=== PATIENT | female | born 1990 | race Caucasian/White ===

== ENCOUNTER 2016-07-29 15:02 | Emergency (ER) | payer SELFPAY ==
[2016-07-29 15:17] VITALS: BP 183/108; PULSE 109; TEMP 97.6; BMI 32.9
--- NOTE | 2016-07-29 15:46 | EDPRACDOC ---
- General Information Chief Complaint: Rib Pain Stated Complaint: RIGHT FLANK PAIN Time Seen by Provider: 07/29/16 15:41 Information Source: Patient Mode Of Arrival: Car Home Medications: Home Medications Lisinopril/Hydrochlorothiazide [Lisinopril-Hctz 10-12.5 mg Tab] 1 tab PO DAILY # 30 tab 01/04/16 Multivitamin [One Daily Multivitamin] 1 each PO DAILY 04/03/16 Clindamycin HCl 300 mg PO TID #20 capsule 05/22/16 Hydrocodone Bit/Acetaminophen [Hydrocodon-Acetaminophen 5-325] 1 - 2 tab PO Q6H PRN #7 tab 05/22/16 Ibuprofen Tablet [Motrin] 800 mg PO TID #30 tab 05/22/16 Ciprofloxacin HCl [Cipro] 500 mg PO BID #20 tab 05/29/16 Oxycodone HCl/Acetaminophen [Percocet 5-325 mg Tablet] 1 each PO Q4 #20 tablet 05/29/16 Ketoprofen 50 mg PO BID PRN #20 capsule 07/29/16 Promethazine Dextromethorphan [Phenergan DM] 5 ml PO Q6 PRN #120 ml 07/29/16 Allergies/Adverse Reactions: Allergies Allergy/AdvReac Type Severity Reaction Status Date / Time Penicillins Allergy Unknown/See Verified 07/29/16 15:17 Comments - History of Present Illness Symptoms Started: YESTERDAY HPI: PT STATES NON-PROD COUGH, CONGESTION FOR THE LAST 2 DAYS, DEVELOPED THROBBING PAIN IN RIGHT RIBS TODAY, STATES PAIN IS SHARP WITH BENDING AND COUGHING. PT DENIES ANY INJURY, NO FEVER OR CHILLS, NO SOBR. PT NON-COMPLIANT WITH HTN MEDS Symptoms: Reports: Cough, Nasal Symptoms Recently Treated Infections:: Denies: Otitis media, Pneumonia, URI Recent Medications: Reports: None Relevant History Of: Reports: None Shortness of Breath: None Cough Frequency: Intermittent Cough Description: Reports: Non-productive Rhinorrhea: Denies: Clear, Bloody, Brown, Green, Purulent, None, O Ear Symptoms: Reports: None Associated Signs and Symptoms: Reports: Cough, Nasal Symptoms ED Past Medical History - History Reviewed Yes Nurses notes reviewed and agree except as marked - Patient Medical History Cardiac History: Reports: Hypertension Psychological History: Denies: Depression - Social Medical History Smoking Status: Heavy tobacco smoker (5 or more cigarettes/day or daily pipe/ cigar) EDM Review of Systems - Review of Systems Constitutional: negative: Chills, Fever Eyes: negative: Blurred Vision, Double Vision Ears: negative: Drainage Throat: negative: Pain Nose: Congestion. negative: Discharge Respiratory: Cough. negative: Shortness of Breath, Wheezing Cardiovascular: negative: Chest Pain Gastrointestinal: negative: Diarrhea, Nausea, Vomiting Musculoskeletal: Chestwall Integumentary: No Symptoms Reported - Physical Exam Constitutional: Alert (Awake), No apparent distress Oriented to: Time, Person, Place Last recorded Vital Signs: Last Vital Signs Temp 97.6 F 07/29/16 15:13 Pulse 109 07/29/16 15:13 Resp 18 07/29/16 15:13 BP 183/108 H 07/29/16 15:13 Pulse Ox 96 07/29/16 15:13 Oxygen Pulse Oxygen Saturation 96 O2 Device Room Air Oxygen Flow Rate Fraction of Inspired Oxygen ( FIO2) - HEENT Head: Normal ( normocephalic) Eye Exam: Normal (PERRL, EOMI, Sclera white) Oropharynx: Normal (Pharynx:Moist without exudate,Gums-no swelling) Tympanic Membrane: Normal ENT EAC: Normal TMJ: Normal Nose: No Symptoms Reported (septum midline) Neck: Normal (FROM, trachea at midline) - Respiratory/Cardiovascular Respiratory: Normal - CTA (BBS clear to auscultation without adventitious sounds ) Cardiovascular: Normal (RRR without murmur, gallop or rub) - Musculoskeletal Musculoskeletal Comment: CHEST WALL: TTP RIGHT LOWER AND LATERAL CHEST WALL, NO CREPITANCE OR SUBCUT EMPHYSEMA - Integumentary Skin: Normal, Warm, Dry Lymphatics: Normal (no adenopathy) - Neurologic Memory Impaired: Normal Motor Function: Normal (Normal tone, Pulses 2+ No cyanosis or edema, FROM) Cranial Nerve: Normal (CN II-X11 intact sensation, strength 5/5) Cerebellar: Normal Mood Description: Normal Perception: Normal - Differential Diagnosis Bronchitis, Otitis Media, Pneumonia, URI Decision Time to Discharge: 15:47 - Departure Disposition: Home Condition: Stable Final Diagnosis: Chest wall pain URI (upper respiratory infection) Qualifiers: URI type: unspecified URI Qualified Code(s): J06.9 - Acute upper respiratory infection, unspecified Instructions: Chest Wall Pain, Upper Respiratory Infection (ED) Education/Counseling Given To: Patient Education/Counseling Given Regarding: Diagnosis, Treatment, Prognosis, Follow Up Referrals: Darion Jefferson MD [Staff Physician] - One Week Prescriptions: Ketoprofen 50 mg PO BID PRN #20 capsule PRN Reason: Pain Promethazine Dextromethorphan [Phenergan DM] 5 ml PO Q6 PRN #120 ml PRN Reason: Cough Additional Instructions: REST, DRINK PLENTY OF FLUIDS, APPLY WARM COMPRESSES TO AREAS OF SORENESS 20 MINS AT A TIME 4 - 5 TIMES DAILY NEEDED FOR PAIN. FOLLOW UP WITH A PRIMARY CARE PROVIDER FOR MANAGEMENT OF YOUR HIGH BLOOD PRESSURE
[2016-07-29] MEDS ORDERED: KETOROLAC TROMETHAMINE 10 MG TAB PO ONE (15:50)
== END 2016-07-29 15:59 | disposition home or self-care (01) ==
LOC: EDMC 15:02
DX: J06.9 Acute upper respiratory infection, unspecified (principal); R07.89 Other chest pain
CPT/HCPCS: 99283; J3490